=== PATIENT | male | born 1960 | race Two or more races ===

== ENCOUNTER 2017-03-14 14:50 | Emergency (ER) | payer OTHER ==
[~2017-03-14 14:50] MED LIST: ASPIRIN325 MG PO; ATENOLOL50 MG PO; HEP25PM IV; LISINOPRIL AND1 TA2 PO; MULTI-VITAMINS1 TAB PO; PENTOXIFYLLINE400 MG PO; PLA75 PO; PRA40 PO; PRAVASTATIN SOD40 M1 PO
[2017-03-14 17:11] LABS: BASOPHIL % 0.9 % (0-2); PLATELET COUNT 209 x10^3mcL (130-400)
[2017-03-14 17:13] LABS: RED CELL DISTRIBUTION WIDTH 16.6 % (11.5-14.5)
[2017-03-14 17:39] LABS: CALCIUM 8.6 mg/dL (8.5-10.1); CHLORIDE SERUM 106 mmol/L (98-107); CREATININE SERUM 1.2 mg/dL (0.7-1.3); GFR1 > 60 mL/min; GLUCOSE SERUM 105 mg/dL (74-106); POTASSIUM SERUM 4.4 mmol/L (3.5-5.1); SODIUM SERUM 141 mmol/L (136-145)
[2017-03-14 17:43] LABS: ALBUMIN 3.8 g/dL (3.4-5.0); ALKALINE PHOSPHATASE 89 U/L (46-116); ALT/SGPT 69 U/L (16-63); AST/SGOT 58 U/L (15-37); BILIRUBIN TOTAL 0.4 mg/dL (0.20-1.00); TOTAL PROTEIN, SERUM 7.7 g/dL (6.4-8.2)
[2017-03-14 17:47] LABS: FREE T4 1.23 ng/dL (0.76-1.46); FREE THYROXINE INDEX 4.4 ug/dL (1.4-4.5); T3 TOTAL 0.71 ng/mL; T4(THYROXINE) 12.2 ug/dL (4.7-13.3)
[2017-03-14 17:50] LABS: CK-MB < 0.5 ng/mL (0-3.6); CREATINE KINASE 60 U/L (39-308)
[2017-03-14 18:47] LABS: ERYTHROCYTE SED RATE 15 mm/hr (0-20)
[2017-03-14 18:51] LABS: C REACTIVE PROTEIN < 0.2 mg/dL (<=0.9)
[2017-03-14 20:50] VITALS: BP 147/91
== END 2017-03-14 20:50 | disposition home or self-care (01) ==
LOC: ED 14:50
PROVIDERS: Specialist
DX: E86.0 Dehydration (principal); R19.7 Diarrhea, unspecified; E11.9 Type 2 diabetes mellitus without complications; I10 Essential (primary) hypertension; E78.5 Hyperlipidemia, unspecified; G62.9 Polyneuropathy, unspecified
CPT/HCPCS: 36600; 83880; 84439; 87046; 87046-59; J2405; J7030; Q0092

== ENCOUNTER 2017-04-05 01:59 | Emergency (ER) | payer OTHER ==
[2017-04-05 02:01] VITALS: BP 131/100
[2017-04-05] MEDS ORDERED: GLUCOPHAGE XR500 MG PO (02:16)
[2017-04-05] MEDS ORDERED: FLO4 PO (02:16)
[2017-04-05] MEDS ORDERED: JANUVIA100 M1 PO (02:17)
[2017-04-05] MEDS ORDERED: AMIODARONE HCL200 MG PO (02:17)
[2017-04-05] MEDS ORDERED: TOPROL XL25 MG PO (02:17)
[2017-04-05] MEDS ORDERED: GABAPENTIN100 M2 PO (02:17)
[2017-04-05] MEDS ORDERED: ATORVASTATIN CA40 M1 PO (02:18)
[2017-04-05 02:32] LABS: PLATELET COUNT 219 x10^3mcL (130-400)
[2017-04-05 02:33] LABS: BASOPHIL % 3.5 % (0-2); RED CELL DISTRIBUTION WIDTH 14.9 % (11.5-14.5)
[2017-04-05 02:41] LABS: CALCIUM 8.5 mg/dL (8.5-10.1); CARBON DIOXIDE 28.9 mmol/L (21-32); CHLORIDE SERUM 104 mmol/L (98-107); CREATININE SERUM 1.1 mg/dL (0.7-1.3); GFR1 > 60 mL/min; GLUCOSE SERUM 88 mg/dL (74-106); POTASSIUM SERUM 4.1 mmol/L (3.5-5.1); SODIUM SERUM 139 mmol/L (136-145)
[2017-04-05 02:45] LABS: ALBUMIN 3.7 g/dL (3.4-5.0); ALKALINE PHOSPHATASE 83 U/L (46-116); ALT/SGPT 44 U/L (16-63); AST/SGOT 29 U/L (15-37); BILIRUBIN TOTAL 0.33 mg/dL (0.20-1.00); TOTAL PROTEIN, SERUM 7.7 g/dL (6.4-8.2)
[2017-04-05 02:54] LABS: CK-MB 1.1 ng/mL (0-3.6)
== END 2017-04-05 03:30 | disposition left against medical advice (07) ==
LOC: ED 01:59
PROVIDERS: Emergency Medicine
DX: R07.89 Other chest pain (principal); I10 Essential (primary) hypertension; I25.2 Old myocardial infarction; E11.9 Type 2 diabetes mellitus without complications; E78.00 Pure hypercholesterolemia, unspecified
CPT/HCPCS: Q0092

== ENCOUNTER 2017-04-08 15:21 | Inpatient (IN) | payer OTHER ==
[~2017-04-08] VITALS: Ht 188 cm; Wt 92.8 kg
[~2017-04-08 15:21] MED LIST changes: +AMIODARONE HCL200 MG PO; +ATORVASTATIN CA40 M1 PO; +FLO4 PO; +GABAPENTIN100 M2 PO; +GLUCOPHAGE XR500 MG PO; +JANUVIA100 M1 PO; +TOPROL XL25 MG PO
--- NOTE | 2017-04-08 15:30 | NUR ---
DR MOSQUEDA AT BEDSIDE FOR MSE
--- NOTE | 2017-04-08 15:35 | NUR ---
PT C/O DIZZINESS, LOW BP, CHEST PAIN, AND SOB SINCE 1330 TODAY. PT IS AAOX4, RESP EVEN AND UNLABORED, RA. LS CTA/DIM LARS. DENIES COUGH, DENIES RECENT FEVER. POS OTHERSTATICS, DR MOSQUEDA AWARE. MIDSTERNAL, NON-RADIATING, NON-PROVOKED 4/10 PRESSURE LIKE CHEST PAIN. DENIES N/V/D. DENIES PAIN UPON URINATION. EKG PERFORMED AND SHOWN TO DR MOSQUEDA. PT AT BEDSIDE. PT PLACED ON FULL DISASTER OR DAMAGE CONTROL SPECIALIST AND PULSE OX
--- NOTE | 2017-04-08 15:43 | NUR ---
PT AMBULATED TO AND FROM RESTROOM, STEADY GAIT. NO INCIDENT.
--- NOTE | 2017-04-08 15:44 | NUR ---
SALES AND MARKETING AGENT AT BEDSIDE FOR BLOOD DRAW
[2017-04-08 15:47] LABS: microscopic required? NO
--- NOTE | 2017-04-08 15:51 | NUR ---
R/T AT BEDSIDE FOR ABD BLOOD DRAW
[2017-04-08 15:59] LABS: BASOPHIL % 0.7 % (0-2); PLATELET COUNT 213 x10^3mcL (130-400)
[2017-04-08 16:00] LABS: urine erythrocyte NEGATIVE (NEGATIVE)
[2017-04-08 16:06] LABS: RED CELL DISTRIBUTION WIDTH 15.8 % (11.5-14.5)
--- NOTE | 2017-04-08 16:09 | NUR ---
RADIOLOGY AT BEDSIDE FOR PCXR
[2017-04-08 16:28] LABS: CALCIUM 8.8 mg/dL (8.5-10.1); CARBON DIOXIDE 24.9 mmol/L (21-32); CREATININE SERUM 1.5 mg/dL (0.7-1.3); POTASSIUM SERUM 4.8 mmol/L (3.5-5.1)
--- NOTE | 2017-04-08 16:28 | NUR ---
PT REMAINS IN STABLE CONDITION. RESP EVEN AND UNLABORED, RA. VS STABLE WITH INCREASE IN BP SINCE COMPLETION OF LT NS BOLUS. NAD NOTED
[2017-04-08 16:33] LABS: ALBUMIN 3.6 g/dL (3.4-5.0); BILIRUBIN TOTAL 0.38 mg/dL (0.20-1.00); MAGNESIUM 1.3 mg/dL (1.8-2.4); T4(THYROXINE) 11.7 ug/dL (4.7-13.3); TOTAL PROTEIN, SERUM 7.9 g/dL (6.4-8.2)
[2017-04-08] MEDS ORDERED: ZESTRIL5 MG PO (16:56)
[2017-04-08] MEDS ORDERED: METOPROLOL SUCC50 M2 PO (16:56)
[2017-04-08] MEDS ORDERED: NEU300 PO (16:56)
[2017-04-08] MEDS ORDERED: REGLAN10 M1 PO (16:56)
[2017-04-08] MEDS ORDERED: CILOSTAZOL100 M1 PO (16:57)
[2017-04-08] MEDS ORDERED: ASPIR 8181 MG PO (16:57)
[2017-04-08] MEDS ORDERED: ZOLOFT100 MG PO (16:58)
[2017-04-08] MEDS ORDERED: SINGULAIR10 MG PO (16:58)
[2017-04-08] MEDS ORDERED: TRAZODONE100 MG PO (16:58)
--- NOTE | 2017-04-08 16:58 | NUR ---
MED REC UPDATE WITH PT PROVIDED INFO
[2017-04-08] MEDS ORDERED: METOPROLOL TART50 MG PO (17:10)
--- NOTE | 2017-04-08 17:10 | NUR ---
VALVE SEATER OPERATOR AT BEDSIDE FOR BLOOD DRAW
[2017-04-08] MEDS ORDERED: GLUCOPHAGE1000 MG PO (17:11)
--- NOTE | 2017-04-08 17:28 | NUR ---
CALLED TO GIVE REPORT. MARGARET ESTRADA REQUESTING CALL BACK IN 5 MINS
[2017-04-08 17:34] LABS: AMPHETAMINE QUAL UR NONE DETECTED (NEG <=1000)
[2017-04-08 17:37] LABS: CHOLESTEROL/HDL RATIO 2.7
[2017-04-08 17:40] LABS: T3 TOTAL 0.71 ng/mL
[2017-04-08 17:44] LABS: FREE T4 1.46 ng/dL (0.76-1.46); FREE THYROXINE INDEX 3.8 ug/dL (1.4-4.5); T4(THYROXINE) 11.2 ug/dL (4.7-13.3)
[2017-04-08 17:52] VITALS: BP 119/74
--- NOTE | 2017-04-08 17:55 | NUR ---
RECEIVED PT FROM ED VIA DUSTIN. ORIENTED PT TO ROOM AND SURROUNDINGS. IV NOTED TO LAC PATENT AND INTACT. TELE 1 PLACED ON PT READING NSR. INSTRUCTED PT ON THE USE OF CALL LIGHT FOR ASSISTANCE. ENORSED PT TO PRIMARY NURSE MARGARET
--- NOTE | 2017-04-08 18:35 | NUR ---
BP RECHECK. SEE VS.
[2017-04-08 18:37] VITALS: BP 91/60
--- NOTE | 2017-04-08 18:40 | NUR ---
SPOKE TO DR FERNANDEZ REGARDING LACTIC ACID OF 2.1 AND MG 1.3
--- NOTE | 2017-04-08 18:49 | NUR ---
MEDICAL STUDENT AT BEDSIDE.
--- NOTE | 2017-04-08 19:15 | NUR ---
SEEN IN BED AWAKE, ALERT, ORIENTED X4. NO RESP DISTRESS NOTED ON ROOM AIR. DENIES PAIN AT THIS TIME. DENIES DIZZINESS. DOCTOR AKASH LANIER AT BEDSIDE AT THIS TIME. ON REGULAR DIET DINNER. BRP. IVF NS TO LAC INFUSING WELL AT 130ML/HR. PLAN OF CARE DICUSSED. CALL LIGHT PLACED WITHIN EASY REACH. SIDERAILS UP X2.
--- NOTE | 2017-04-08 19:47 | NUR ---
MG 1.3, AWAITING FOR MG RIDER FROM PHARMACY.
[2017-04-08 20:14] VITALS: BP 90/56
[2017-04-08 20:22] VITALS: BP 90/56
--- NOTE | 2017-04-08 21:13 | NUR ---
ULTRASOUND CAROTID AT BEDSIDE.
[2017-04-09] VITALS (9 sets, daily range): BP systolic 108–147; BP diastolic 71–103
--- NOTE | 2017-04-09 04:47 | NUR ---
NO COMPLAINTS OF PAIN OR DIZZINESS THROUGHOUT THE SHIFT. AMBULATORY TO BATHROOM WITH STEADY GAIT. MG RIDER 4GM IVPB GIVEN (MG LEVEL=1.3). IVF NS CONTINUED AT 130ML/HR TO LAC IV SITE. SPOUSE AT BEDSIDE AT ALL TIMES. SCD TO BLE.
[2017-04-09 06:34] LABS: CALCIUM 7.9 mg/dL (8.5-10.1); CARBON DIOXIDE 24.8 mmol/L (21-32); CHLORIDE SERUM 110 mmol/L (98-107); CREATININE SERUM 1.1 mg/dL (0.7-1.3); GFR1 > 60 mL/min; GLUCOSE SERUM 152 mg/dL (74-106); MAGNESIUM 1.9 mg/dL (1.8-2.4); PHOSPHOROUS 3.3 mg/dL (2.5-4.9); SODIUM SERUM 143 mmol/L (136-145)
--- NOTE | 2017-04-09 07:45 | NUR ---
PATIENT RECEIVED SLEEPING, ARROUSABLE, AT BEDSIDE. A/OX4, DENIES HEADACHE. TELE 1, DENIES CP OR PALPITATION. PERIPHERAL PULSES PALPABLE, TRACE EDEMA NOTED TO BLE'S. BREATHING EVEN AND UNLABORED, NO RESP DISTRESS NOTED ON RA, LUNGS CTA. BOWEL SOUNDS ACTIVE, LAST BM STATED YESTERDAY, DENIES N/V, DENIES GI DISCOMFORT AT THIS TIME. SKIN INTACT. IV ACCESS TO LAC RUNNING NS AT 130ML/HR INFUSING WELL SITE WNL. CALL LIGHT WITHIN REACH. PATIENT GOT UP TO USE RESTROOM, DENIES ANY DIZZINESS, GAIT STABLE. WILL CONT TO MONITOR.
[2017-04-09 08:43] LABS: BASOPHIL % 0.8 % (0-2); PLATELET COUNT 191 x10^3mcL (130-400)
[2017-04-09 08:46] LABS: RED CELL DISTRIBUTION WIDTH 15.9 % (11.5-14.5)
--- NOTE | 2017-04-09 12:30 | NUR ---
PHYSICAL THERAPISTS EVALUATING PATIENT, AMBULATING IN HALLWAY.
--- NOTE | 2017-04-09 13:43 | NUR ---
P.T. NOTES EVAL COMPLETED - PLEASE SEE EVAL NOTES FOR DETAILS. S:SEEN ASLEEP IN BED WITH AT HIS BEDSIDE BUT WAS EASILY AWAKEN WHEN VERBALLY STIMULATED. BOTH WERE AGREEABLE WITH THE PLAN OF CARE AND WAS ALSO GIVEN CLEARANCE FOR P.T. BY HIS NURSE. DENIES ANY PAIN @ THIS TIME WHEN ASKED FOR ANY PAIN OR DISCOMFORT. VITAL SIGNS FOLLOWS: BP: 140/99 HEART RATE: 97, SP02 @ 97 % ROOM AIR, TEMP: 99.2 F. O:FUNCTIONAL MOBILITY ACTIVITIES FROM SUPINE TO SIT WITH CGA, FROM SIT TO STAND WITH MIN/CGA, STANDING DYNAMIC BALANCE EX AT EDGE OF BED WHILE HOLDING ON TO THE IV POLE. HE THEN PROCEEDED WITH GAIT TRAINING ALONG THE HALLWAY WITH FOLLOWING AND WITH IV POLE IN TOW X 25 FT X 2 WITH MIN/CGA THEN WAS SAFELY ASSISTED TO THE BATHROOM FIRST BEFORE HE RETURNED BACK TO HIS BED. AT HIS SIDE ASSISTING WELL. BOTH WERE EDUCATED ON SAFETY DURING FUNCTIONAL MOBILITY ACTIVITIES WITH GOOD RETURN DEMO PROVIDED AND GOOD UNDERSTANDING EXPRESSED. CALL LITE AND PHONE ARE ALL WITHIN REACH. A:GOOD TOLERANCE ON THIS OUT OF BED ACTIVITIES WITH NO REPORTED DIZZINESS NOR ANY NOTED LOSS OF BALANCE. HIS BP REMAINS TO BE WNL'S AND DENIES FEELING LIGHTHEADED FROM SUPINE TO SIT TO STAND. PATIENT APPRECIATIVE OF THE CARE GIVEN. P:CONTINUE P.T. PER THE RECOMMENDED TREATMENT PLAN OF CARE. AUTO PARTS COUNTER PERSON WAS ALSO INFORMED OF THE RECOMMENDATION. [id number] ([id number]'), GT10, BATHROOM ASSISTANCE (PVE), ANOTHER STAFF PRESENT TO ASSIST IN SET UP BEFORE AND AFTER THE TREATMENT ([id number]) G CODES: [id number], [id number], TUG SCORE: 12 seconds
--- NOTE | 2017-04-09 13:46 | NUR ---
ECHOCARDIOGRAM COMPLETED
--- NOTE | 2017-04-09 18:05 | NUR ---
BLOOD SUGAR 187, 3U HUMULIN REG GIVEN PER SLIDING SCALE ORDER AND VERIFIED BY SECONDARY RN GERMAN. 2 MINUTES AFTER ADMINISTRATION FAMILY REQUESTING TO HAVE BLOOD SUGAR CHECKED, THE PATIENT "FEELS LIKE HIS BLOOD SUGAR IS GOING DOWN". BLOOD SUGAR RECHECK 186. PATIENT STATES FEELING "WEAKER". VITAL SIGNS TAKEN AND CHARTED, STABLE. O2 SAT 93%, PATIENT DENIES FEELING SOB AND STATES HAVE CHRONIC NASAL/SINUS ISSUES. OFFERED NC O2 SUPPLEMENT, REFUSED STATES UNCOMFORTABLE. AFTER 15 MIN, PATIENT STATES FEELING SLIGHTLY BETTER STILL SOMEWHAT WEAK, DENIES DIZZINESS. FALL PREC. CALL LIGHT WITHIN REACH REACH. WILL CONT TO MONITOR.
--- NOTE | 2017-04-09 19:35 | NUR ---
SEEN ASLEEP IN BED, BRATHING EASY ON ROOM AIR. NSR ON SIGHT EFFECTS SPECIALIST. IVF NS INFUSING AT 50ML/HR TO LAC IV SITE. SCD TO BLE. CALL LIGHT NOTED WITHIN EASY REACH. SIDERAILS UP X2. WILL CONTINUE TO MONITOR.
--- NOTE | 2017-04-10 05:47 | NUR ---
NO ANY DISTRESS THROUGHOUT THE SHIFT. VSS. DENIES PAIN. BRP. IVF NS AT 50ML INFUSING WELL TO LAC IV SITE.
[2017-04-10 05:56] VITALS: BP 126/86
[2017-04-10 06:28] LABS: BASOPHIL % 0.6 % (0-2); PLATELET COUNT 184 x10^3mcL (130-400)
[2017-04-10 06:45] LABS: RED CELL DISTRIBUTION WIDTH 15.9 % (11.5-14.5)
[2017-04-10 06:49] LABS: CALCIUM 8.2 mg/dL (8.5-10.1); CARBON DIOXIDE 23.5 mmol/L (21-32); CHLORIDE SERUM 107 mmol/L (98-107); GFR1 > 60 mL/min; GLUCOSE SERUM 155 mg/dL (74-106); MAGNESIUM 1.3 mg/dL (1.8-2.4); PHOSPHOROUS 2.5 mg/dL (2.5-4.9); POTASSIUM SERUM 4.6 mmol/L (3.5-5.1); SODIUM SERUM 140 mmol/L (136-145)
--- NOTE | 2017-04-10 08:03 | NUR ---
PT RECEIVED DURING CHANGE OF SHIFT, A/OX4, TELE 1, NSR, DENIES CHEST PAIN, PULSES PRESENT, TRACE EDEMA PRESENT BLE, LUNGS CTA ON RA, BOWEL SOUNDS ACTIVE, DENIES N/V, PT ABLE TO VOID, AMBULATORY, SKIN WARM DRY INTACT, DENIES PAIN, IV IN LAC INFUSING NS AT 50ML/HR, PT KEEPS REPORTING IV ALARM GOING OFF, WHEN RN WALKS INTO ROOM ALARM NOT SOUNDING, PUT ON STANDBY TEMPORARILY, IV WNL, PREVIOUS ATTEMPTS AT STARTING IV NOT CAUSING PAIN OR SWELLING AND PRESSURE ALARM WNL, PT REQUESTED TO D/C IV, INFORMED PT THAT LINE IS NEEDED IN CASE OF EMERGENCY REGARDLESS OF BEING ON STANDBY, CALL LIGHT WITHIN REACH, AT BEDSIDE, WILL CONTINUE TO MONITOR.
--- NOTE | 2017-04-10 08:55 | NUR ---
DR. YANG AND RESIDENTS DOING ROUNDS, PLAN OF CARE DISCUSSED.
--- NOTE | 2017-04-10 08:56 | NUR ---
PT DENIES PAIN, DENIES SOB, REFUSED COLACE AND ANTHONYOFT, AT BEDSIDE, CALL LIGHT WITHIN REACH, WILL CONTINUE TO MONITOR.
[2017-04-10 09:03] VITALS: BP 126/86
--- NOTE | 2017-04-10 09:50 | NUR ---
PT RESTING, NO INDICATION OF PAIN, BREATHING EVEN AND UNLABORED, CALL LIGHT WITHIN REACH, RESTING ON BEDSIDE COUCH, CALL LIGHT WITHIN REACH, WILL CONTINUE TO MONITOR.
[2017-04-10 10:00] VITALS: BP 129/76
--- NOTE | 2017-04-10 10:06 | NUR ---
PT RESTING, NO INDICATION OF PAIN, BREATHING EVEN AND UNLABORED, CALL LIGHT WITHIN REACH, AT BEDSIDE, CALL LIGHT WITHIN REACH, WILL CONTINUE TO MONITOR.
--- NOTE | 2017-04-10 11:09 | NUR ---
PT DENIES SOB, DENIES PAIN, DENIES N/V, BS 102 NO COVERAGE NEEDED, CALL LIGHT WITHIN REACH, AT BEDSIDE, WILL CONTINUE TO MONITOR.
[2017-04-10] MEDS ORDERED: ZESTRIL5 MG PO (12:17)
[2017-04-10] MEDS ORDERED: LOP50 PO (12:18)
--- NOTE | 2017-04-10 12:30 | NUR ---
PT ASLEEP BUT AROUSABLE, DENIES SOB, DENIES PAIN, AT BEDSIDE, CALL LIGHT WITHIN REACH, WILL CONTINUE TO MONITOR.
--- NOTE | 2017-04-10 13:02 | NUR ---
PT AND RECEIVED DISCHARGE INSTRUCTIONS, VERBALIZED UNDERSTANDING, ALL QUESTIONS ANSWERED, AWARE OF HAVING TO SCHEDULE OWN APPOINTMENT DUE TO CLINICS BEING CLOSED ON WEEKENDS, AWARE PRESCRIPTIONS SENT TO PHARMACY, IV DC'D CATHETER INTACT, ARMBAND DC'D, TELE 1 DC'D AND RETURNED TO STATION, PT MADE AWARE TO NOTIFY STAFF WHEN READY TO BE ESCORTED DOWNSTAIRS, CALL LIGHT WITHIN REACH.
--- NOTE | 2017-04-10 13:06 | NUR ---
PT BEING ESCORTED DOWNSTAIRS BY SECOND CLASS WELDER DASHA.
== END 2017-04-10 13:06 | disposition home or self-care (01) | DRG 48 ==
LOC: ED 15:21 → DU 16:58
PROVIDERS: Emergency Medicine; Family Medicine; ADMIT Family Medicine
DX: G90.8 Other disorders of autonomic nervous system (principal); N17.0 Acute kidney failure with tubular necrosis; I95.1 Orthostatic hypotension; H53.8 Other visual disturbances; I10 Essential (primary) hypertension; E78.5 Hyperlipidemia, unspecified; E11.42 Type 2 diabetes mellitus with diabetic polyneuropathy; F41.9 Anxiety disorder, unspecified; I25.10 Atherosclerotic heart disease of native coronary artery without angina pectoris; E11.65 Type 2 diabetes mellitus with hyperglycemia; E83.42 Hypomagnesemia; Z53.29 Procedure and treatment not carried out because of patient's decision for other reasons; K21.9 Gastro-esophageal reflux disease without esophagitis; F32.9 Major depressive disorder, single episode, unspecified; N40.0 Benign prostatic hyperplasia without lower urinary tract symptoms; Z79.82 Long term (current) use of aspirin; Z79.899 Other long term (current) drug therapy; Z87.891 Personal history of nicotine dependence; I25.2 Old myocardial infarction; Z95.5 Presence of coronary angioplasty implant and graft; Z79.84 Long term (current) use of oral hypoglycemic drugs
CPT/HCPCS: 36600; 80307; 83880; 84439; 97116-GP; J3475; J7030; J7613; J8597; Q0092